=== PATIENT | female | born 1955 | race Caucasian/White ===

== ENCOUNTER 2016-08-19 08:28 | Outpatient (RCR) | payer BC ==
[~2016-08-19 08:28] MED LIST: NO HOME MEDICATIONS
== END 2016-08-20 10:55 | disposition still patient (30) ==
LOC: MKS.ESL.PT 08:28
DX: M25.552 Pain in left hip (principal); R26.2 Difficulty in walking, not elsewhere classified

== ENCOUNTER → 2016-11-06 | Outpatient (CLI) | payer BC | LOC: COL.LAB 10:13 | DX: Z01.812 Encounter for preprocedural laboratory examination (principal); M25.852 Other specified joint disorders, left hip ==

== ENCOUNTER → 2017-04-07 | Outpatient (CLI) | payer BC | LOC: MC.RAD 11:31 | DX: Z12.31 Encounter for screening mammogram for malignant neoplasm of breast (principal) ==

== ENCOUNTER 2017-06-27 08:03 | Day surgery (SDC) | payer BC ==
[~2017-06-27] VITALS: Ht 165.1 cm; Wt 59.3 kg
[2017-06-27] MEDS ORDERED: TYLENOL 500MG500 MG PO (08:36)
[2017-06-27 08:37] VITALS: BP 119/73; PULSE 69; TEMP 98.2
[2017-06-27 09:30] VITALS: BP 113/66; PULSE 66; TEMP 97.6
[2017-06-27 09:45] VITALS: BP 105/67; PULSE 58
[2017-06-27 10:00] VITALS: BP 109/70; PULSE 66
[2017-06-27 10:15] VITALS: BP 112/68; PULSE 54
[2017-06-27 10:25] VITALS: BP 140/63; PULSE 65; TEMP 98
== END 2017-06-27 10:40 | disposition home or self-care (01) ==
LOC: SDCO 08:03
DX: Z12.11 Encounter for screening for malignant neoplasm of colon (principal)
CPT/HCPCS: OP; J2250; J2405; J3010; J7030

== ENCOUNTER → 2017-10-01 | Outpatient (CLI) | payer BC ==
[~2017-10-01] MED LIST changes: +TYLENOL 500MG500 MG PO
== END ==
LOC: COL.LAB 09:00
DX: Z01.812 Encounter for preprocedural laboratory examination (principal)

== ENCOUNTER → 2019-08-26 | Outpatient (CLI) | payer BC | LOC: MC.RAD 07:15 | DX: Z12.31 Encounter for screening mammogram for malignant neoplasm of breast (principal) ==

== ENCOUNTER 2021-06-14 14:49 | Outpatient (CLI) | payer MEDICARE ==
[~2021-06-14] VITALS: Ht 165.1 cm; Wt 61.3 kg
[2021-06-14 15:32] VITALS: BP 114/74; PULSE 63; TEMP 98.8
== END 2021-06-14 17:02 ==
LOC: EUO 14:49
DX: M81.0 Age-related osteoporosis without current pathological fracture (principal)
CPT/HCPCS: J3489

== ENCOUNTER → 2021-08-01 | Outpatient (CLI) | payer MEDICARE | LOC: MC.RAD 07:15 | DX: Z12.31 Encounter for screening mammogram for malignant neoplasm of breast (principal) ==

== ENCOUNTER → 2023-11-20 | Outpatient (CLI) | payer MEDICARE | LOC: MC.RAD 07:56 | DX: Z12.31 Encounter for screening mammogram for malignant neoplasm of breast (principal); N64.89 Other specified disorders of breast ==

== ENCOUNTER → 2023-11-24 | Outpatient (CLI) | payer MEDICARE | LOC: MC.RAD 07:55 | DX: N64.89 Other specified disorders of breast (principal) ==